=== PATIENT | female | born 1990 | race Hispanic/Latino ===

== ENCOUNTER 2016-11-30 18:51 | Emergency (ER) | payer BC, MEDICAID ==
[2016-11-30 20:31] VITALS: BMI 26.9
[2016-11-30] MEDS ORDERED: Lactated Ringer's 1,000 ML IV STA (20:42)
--- NOTE | 2016-11-30 20:51 | ED PDOC ---
HPI: Abdomen Time Seen by Provider: 11/30/16 20:08 Chief Complaint (Provider): Epigastric pain History Per: Patient History/Exam Limitations: no limitations Onset/Duration Of Symptoms: Hrs (since 5PM) Current Symptoms Are (Timing): Better Additional Complaint(s): Shannon Ndiaye is a 26 y/o female who presents to the ED for complaints of epigastric pain, sudden onset around 5PM. She then developed nausea and vomited once. Patient had just eaten a PB&J just prior to vomiting because she thought it would alleviate the stomach discomfort. Also has had 3 episodes of diarrhea. Denies hematemesis, fever, chills, and urinary symptoms. Patient is 29 weeks and was seen at the [facility] and sent down here for further evaluation. Currently she reports minimal discomfort, has not tried to eat or drink anything since vomiting. OB: Dr. Saba Past Medical History Reviewed: Historical Data, Nursing Documentation, Vital Signs Vital Signs: Last Vital Signs Temp 98.0 F 11/30/16 22:10 Pulse 90 11/30/16 22:10 Resp 18 11/30/16 22:10 BP 129/81 11/30/16 22:10 Pulse Ox 100 11/30/16 22:10 - Medical History PMH: Asthma, Hypothyroidism - Family History Family History: States: Unknown Family Hx - Immunization History Hx Tetanus Toxoid Vaccination: No Hx Influenza Vaccination: Yes Hx Pneumococcal Vaccination: No - Home Medications Home Medications: Ambulatory Orders Medication Instructions Recorded Levothyroxine Sodium [Synthroid] 1 tab PO DAILY 08/22/14 Vit#96/Ferrous Fum/FA 1 tab PO DAILY 08/22/14 [ Tablet] Montelukast [Singulair] 1 tab PO DAILY 10/17/14 Ibuprofen [Motrin Tab] 800 mg PO Q8 #1 tab 10/21/14 Famotidine [Pepcid] 40 mg PO DAILY PRN #14 tab 11/30/16 Ondansetron ODT [Zofran ODT] 1 odt PO Q6 PRN #20 odt 11/30/16 - Allergies Allergies/Adverse Reactions: Allergies Allergy/AdvReac Type Severity Reaction Status Date / Time shellfish derived Allergy Mild rash and Verified 11/30/16 20:08 swelling Review of Systems ROS Statement: Except As Marked, All Systems Reviewed And Found Negative (and as per HPI) Constitutional: Negative for: Fever, Chills Gastrointestinal: Positive for: Nausea, Vomiting (x 1 episode), Abdominal Pain ( epigastric), Diarrhea (x 3 episodes). Negative for: Hematemesis Genitourinary Female: Negative for: Dysuria, Frequency, Incontinence Physical Exam - Reviewed Nursing Documentation Reviewed: Yes Vital Signs Reviewed: Yes - Physical Exam Appears: Positive for: Well, No Acute Distress Head Exam: Positive for: ATRAUMATIC, NORMOCEPHALIC Skin: Positive for: Warm, Dry, Rash (eczematous rash to bilateral antecubital areas and periroral area) Eye Exam: Positive for: EOMI, PERRL ENT: Negative for: Pharyngeal Erythema, Tonsillar Exudate Neck: Positive for: Painless ROM, Supple Cardiovascular/Chest: Positive for: Regular Rate, Rhythm, Chest Non Tender. Negative for: Bradycardia Respiratory: Positive for: Normal Breath Sounds. Negative for: Wheezing, Respiratory Distress Gastrointestinal/Abdominal: Positive for: Other (gravid >20 weeks). Negative for: Tenderness, Mass, Guarding Back: Positive for: Normal Inspection. Negative for: Vertebral Tenderness Extremity: Positive for: Normal ROM. Negative for: Deformity Lymphatic: Negative for: Adenopathy Neurologic/Psych: Positive for: Alert. Negative for: Motor/Sensory Deficits - Laboratory Results Result Diagrams: 11/30/16 21:00 11/30/16 21:00 Medical Decision Making Medical Decision Making: Initial Impression: Vomiting and Epigastric pain Time: 20:41 Initial Plan: --Labs --Lactated Ringers 1000 ml at 1000 mls/hr IV --Labs demonstrate no emergently significant lab abnormalities Time: 21:46 Clinical Impression: Vomiting and diarrhea Upon provider reevaluation patient is medically stable, and requires no further treatment in the ED at this time. Patient will be discharged with Rx for Zofran and Pepcid. Counseling was provided and all questions were answered regarding diagnosis and need for follow up with OBGYN. There is agreement to discharge plan. Return if symptoms persist or worsen. Scribe Attestation: Documented by Emilie Fuentes, acting as a scribe for Norah Dill MD Provider Scribe Attestation: All medical record entries made by the Scribe were at my direction and personally dictated by me. I have reviewed the chart and agree that the record accurately reflects my personal performance of the history, physical exam, medical decision making, and the department course for this patient. I have also personally directed, reviewed, and agree with the discharge instructions and disposition. Disposition - Clinical Impression Clinical Impression: Vomiting and diarrhea - Patient ED Disposition Is Patient to be Admitted: No Doctor Will See Patient In The: Office Counseled Patient/Family Regarding: Studies Performed, Diagnosis, Need For Followup, Rx Given - Disposition Referrals: Jan Saba MD [Staff Provider] - 12/01/16 Disposition: Routine/Home Disposition Time: 21:46 Condition: GOOD Prescriptions: Famotidine [Pepcid] 40 mg PO DAILY PRN #14 tab PRN Reason: reflux Ondansetron ODT [Zofran ODT] 1 odt PO Q6 PRN #20 odt PRN Reason: Nausea/Vomiting Instructions: Acute Nausea and Vomiting (ED)
[2016-11-30 21:07] LABS: BASO # 0.1 K/uL (0.0-0.2); BASO % 0.8 % (0.0-2.0); EOS # 0.3 K/uL (0.0-0.7); EOS % 2.5 % (0.0-4.0); HEMATOCRIT 35.4 % (34.0-47.0); LYMPH % 14.7 % (20.0-40.0); MEAN CELL VOLUME 90.9 fl (81.0-99.0); MEAN CORPUSCULAR HEMOGLOBIN 30.4 pg (27.0-31.0); MEAN CORPUSCULAR HGB CONC 33.4 g/dL (33.0-37.0); MEAN PLATELET VOLUME 10.2 fl (7.2-11.7); MONO # 0.7 K/uL (0.0-0.8); NEUT # 10.3 K/uL (1.8-7.0); RED CELL DISTRIBUTION WIDTH 14.5 % (11.5-14.5); WHITE BLOOD COUNT 13.4 K/uL (4.8-10.8)
[2016-11-30 21:24] LABS: ALB/GLOB RATIO 1.1 (1.0-2.1); ALKALINE PHOSPHATASE 82 U/L (38-126); ALT/SGPT 33 U/L (9-52); AST/SGOT 24 U/L (14-36); BILIRUBIN,TOTAL 0.5 mg/dl (0.2-1.3); BLOOD UREA NITROGEN 6 mg/dl (7-17); CARBON DIOXIDE 22 mmol/L (22-30); CHLORIDE 103 mmol/L (98-107); GFR AFRICAN-AMERICAN > 60; GLUCOSE,RANDOM 80 mg/dL (65-105); LIPASE 74 U/L (23-300); POTASSIUM 3.8 MMOL/L (3.6-5.0); SODIUM 136 mmol/l (132-148); TOTAL PROTEIN 7.4 G/DL (6.3-8.2)
--- NOTE | 2016-11-30 21:24 | OBHP ---
Datetime: 11/30/2016 19:30 IP Adm Impression: , intrauterine ; No Active Labor; Intact Membranes IP Chief Complaint Other: dizziness IP Admit Plan: Discharge home IP Admit Plan Other: sent to ER for medical eval Admit Comment, IP Provider: IUP at 24+w c/o diszziness 4pm. She had gone to her granmother' s house. She ate german food and then peanut butter jelly sandwaich. [place] Dizziness. + N/V one time . She also had mid epigastric/midline CP. Currently she feels OK but still dizzy care: Dr Whitley Saba - abnormal glucola 200+ POBGYNH: C/S x 1 full term PMH: denies NKA PSoH: deneis smoking ETOTH drugs A; IUP at 24w dizziness PLAN: cleared by OB sned to ER for evaluation...case disucssed with Dr Saba and agreeed Pelvic Type - PN: Not Done Extremities - PN: Normal Abdomen - PN: Normal Back - PN: Normal Breast - PN: Not Done Lungs - PN: Normal Heart - PN: Normal Thyroid - PN: Not Done Neurologic - PN: Normal HEENT - PN: Normal General - PN: Normal FHR - Baseline A Provider: 140 Contraction Comments Provider: none Comments, ACOG Physical Exam: ROS: General: + weakness; no fatigue HEENT: no PETERS; no visual dist CV: no palpitations; +CP GI: +N/V no diarhea No epigastric pain; non radiating : no F/U/D MS: No joint pain IP Hx Assessment: The History has been Reviewed and is Current IP Chief Complaint: Other NICHD Variability Prov Fetus A: Moderate 6-25bpm NICHD Accel Fetus A IP Provider: 15X15 FHR Category Provider Fetus A: Category I NICHD Decel Fetus A IP Provider: None Genitourinary Exam: Normal DTRs - PN: Normal
--- NOTE | 2016-11-30 21:39 | OBDCSUM ---
Datetime: 11/30/2016 19:42 Discharged to, Provider: Other Disch Instr Activity: Normal activity Disch Instr Diet: Restricted, specify Discharge Diet restrict Prov: Diabetic diet Discharge Time: 11/30/2016 19:42 Disch Referrals: None Discharge Comment, Provider: [facility] Discharge Diagnosis Prov Other: gastroenteritits; chest pain
[2016-11-30 21:44] VITALS: O2SAT 100
[2016-11-30 22:10] VITALS: RESP 18
[2016-12-01 01:08] VITALS: BP 113/74; PULSE 92; TEMP 98.9
== END 2016-11-30 22:17 | disposition home or self-care (01) ==
LOC: H.EROB2 18:51 → H.ER 18:51
DX: K52.9 Noninfective gastroenteritis and colitis, unspecified (principal); E03.9 Hypothyroidism, unspecified
CPT/HCPCS: 80053; 82948; 83690; 85025; 96360; 99283; J7120

== ENCOUNTER 2016-12-07 16:40 | Emergency (ER) | payer BC, MEDICAID ==
[2016-12-07 17:26] LABS: RBC URINE 1 /hpf (0-3); URINE BACTERIA RARE (<OCC); URINE BILIRUBIN NEGATIVE (NEGATIVE); URINE BLOOD NEGATIVE (NEGATIVE); URINE COLOR STRAW (YELLOW); URINE GLUCOSE (UA) NEG (Normal); URINE KETONE NEGATIVE (NEGATIVE); URINE LEUKOCYTE ESTERASE NEG Leu/uL (Negative); URINE PROTEIN NEGATIVE (NEGATIVE); URINE UROBILINOGEN 0.2-1.0 mg/dL (0.2-1.0); WBC URINE < 1 /hpf (0-5)
--- NOTE | 2016-12-07 17:37 | OBHP ---
Datetime: 12/07/2016 17:15 IP Adm Impression: , intrauterine ; No Active Labor; Intact Membranes IP Chief Complaint Other: feeling her underwear was wet IP Admit Plan: Observation/Evaluation Admit Comment, IP Provider: IUP at 31+w c/o feeling that he underwear was wet this afternoon . No gush of fluid. no CTX pain. no VB. +FM care: Dr Whitley Saba - abnormal glucola 200+ POBGYNH: C/S x 1 full term PMH: denies NKA PSoH: deneis smoking ETOTH drugs ' IUP at 31w no evidenece of ROM PLAN will check sono for HANSEL and UA for possible UTI Pelvic Type - PN: Adequate Extremities - PN: Normal Abdomen - PN: Normal Back - PN: Normal Breast - PN: Not Done Lungs - PN: Normal Heart - PN: Normal Thyroid - PN: Normal Neurologic - PN: Normal HEENT - PN: Normal General - PN: Normal FHR - Baseline A Provider: 140 Membranes, Provider: Intact Contraction Comments Provider: none Comments, ACOG Physical Exam: ROS: General: no weakness; no fatigue HEENT: no PEETRS; no visual dist CV: no palpitations; no no CP GI: no N/V no diarhea No epigastric pain; non radiating : no F/U/D MS: No joint pain Pool Provider: Negative Ferning Provider: Negative IP Hx Assessment: The History has been Reviewed and is Current Vital Signs Provider: Reviewed; Within Normal Limits IP Chief Complaint: Other NICHD Variability Prov Fetus A: Moderate 6-25bpm NICHD Accel Fetus A IP Provider: 15X15 FHR Category Provider Fetus A: Category I Dilatation, Provider: 0 Genitourinary Exam: Normal DTRs - PN: Normal
--- NOTE | 2016-12-07 18:44 | US ---
OB , limited Indication: Evaluate HANSEL Comparison: None. Technique: Real-time ultrasound was performed through the pelvis. Findings: There is a single living fetus in cephalic presentation. Amniotic fluid volume is within normal limits measuring approximately 13.7 cm. Fundal placenta. The placenta is not previa. There are no adnexal masses or cysts evident. Cervix length measures approximately 5.2 cm. The cervix appears closed. Measurements and calculations: Fetus has a composite sonographic age of 31 weeks 6 days. This calculation is based on the biparietal diameter, head circumference, abdominal circumference, and femur length. Estimated heart rate 153 beats per min. Impression: Single living fetus with a composite sonographic age of 31 weeks 6 days. Estimated heart rate 153 beats per min.
[2016-12-07 23:57] VITALS: BP 102/61; PULSE 87; O2SAT 100
== END 2016-12-07 19:23 | disposition home or self-care (01) ==
LOC: H.EROB2 16:40 → H.EROB 17:05 → H.EROB2 19:23
DX: O47.03 False labor before 37 completed weeks of gestation, third trimester (principal); Z3A.31 31 weeks gestation of pregnancy

== ENCOUNTER 2017-01-02 13:12 | Emergency (ER) | payer BC, MEDICAID ==
--- NOTE | 2017-01-02 14:15 | OBHP ---
Datetime: 01/02/2017 14:09 IP Adm Impression: , intrauterine ; No Active Labor; Intact Membranes IP Admit Plan: Discharge home Admit Comment, IP Provider: D/C home on pelvic and bed rest with instrucions and follow up office th is wk Verbalizes understanding and agreed Extremities - PN: Normal Abdomen - PN: Abnormal Back - PN: Not Done Breast - PN: Not Done Lungs - PN: Normal Heart - PN: Normal Thyroid - PN: Not Done Neurologic - PN: Normal HEENT - PN: Normal FHR - Baseline A Provider: 150 Amniotic Fluid Color, Provider: nitrazine neg Membranes, Provider: Intact Contraction Comments Provider: none Comments, ACOG Physical Exam: Abd soft NT gravid, fundus at 33 cm above sp, NT, SVE speculum no flui d in vault no pooling no active bleeding Nitrazine and cough test neg Ext no calf tenderness Gestation - Est Wks by US: 33 wks Pool Provider: Negative Nitrazine Provider: Negative IP Hx Assessment: The History has been Reviewed and is Current EGA AdmitDate IP: 33.2 IP Chief Complaint: Suspected ruptured membranes NICHD Variability Prov Fetus A: Moderate 6-25bpm NICHD Accel Fetus A IP Provider: 10X10 NICHD Decel Fetus A IP Provider: None Dilatation, Provider: closed Effacement, Provider: none Genitourinary Exam: Normal DTRs - PN: Normal
[2017-01-02 19:00] VITALS: BP 117/63; PULSE 91; RESP 16; TEMP 98.7; O2SAT 100
== END 2017-01-02 14:16 | disposition home or self-care (01) ==
LOC: H.EROB2 13:12 → H.EROB 13:18 → H.EROB2 14:16
DX: O47.03 False labor before 37 completed weeks of gestation, third trimester (principal); Z3A.33 33 weeks gestation of pregnancy

== ENCOUNTER 2017-01-13 23:01 | Emergency (ER) | payer BC, MEDICAID ==
[2017-01-13 23:57] VITALS: BMI 29.9
[2017-01-14 00:27] LABS: RBC URINE 2 /hpf (0-3); URINE BACTERIA RARE (<OCC); URINE BILIRUBIN NEGATIVE (NEGATIVE); URINE BLOOD NEGATIVE (NEGATIVE); URINE COLOR STRAW (YELLOW); URINE GLUCOSE (UA) NEG (Normal); URINE KETONE NEGATIVE (NEGATIVE); URINE LEUKOCYTE ESTERASE NEG Leu/uL (Negative); URINE PROTEIN NEGATIVE (NEGATIVE); URINE UROBILINOGEN 0.2-1.0 mg/dL (0.2-1.0); WBC URINE 1 /hpf (0-5)
[2017-01-14 05:16] VITALS: BP 117/59; PULSE 83; RESP 18
--- NOTE | 2017-01-14 08:45 | OBHP ---
Datetime: 01/14/2017 08:41 IP Adm Impression: , intrauterine ; No Active Labor; Intact Membranes IP Admit Plan: Observation/Evaluation; Discharge home Admit Comment, IP Provider: 26-year-old 001 at 35 weeks gestational age presents to be complai bacilio of contractions. Patient denies any vaginal bleeding or leakage of fluids. Patient reports good movement. records reviewed. Past medical history none Past surgical history 1 Medications vitamins No known drug allergies Surgical history full-term 1 Social history no tobacco, no drugs, no alcohol Physical exam: Deferred physical exam findings Assessment: 36-year-old at 34 weeks gestational age. No evidence of labor at this time. Both maternal we ll-being and well-being reassuring at this time. Plan: Patient discharged home with labor precautions. Patient will follow up in office this week. Pelvic Type - PN: Adequate Extremities - PN: Normal Abdomen - PN: Normal Back - PN: Normal Breast - PN: Normal Lungs - PN: Normal Heart - PN: Normal Thyroid - PN: Normal Neurologic - PN: Normal HEENT - PN: Normal General - PN: Normal FHR - Baseline A Provider: 130s-140s Membranes, Provider: Intact Contraction Comments Provider: occasional Comments, ACOG Physical Exam: Urinalysis negative IP Hx Assessment: The History has been Reviewed and is Current EGA AdmitDate IP: 35.0 Vital Signs Provider: Reviewed; Within Normal Limits IP Chief Complaint: Uterine contractions NICHD Variability Prov Fetus A: Moderate 6-25bpm NICHD Accel Fetus A IP Provider: 15X15 FHR Category Provider Fetus A: Category I NICHD Decel Fetus A IP Provider: None Dilatation, Provider: 0 Effacement, Provider: 0 Station, Provider: -4 Genitourinary Exam: Normal DTRs - PN: Normal
== END 2017-01-14 01:05 | disposition home or self-care (01) ==
LOC: H.EROB2 23:01
DX: O47.03 False labor before 37 completed weeks of gestation, third trimester (principal); Z3A.35 35 weeks gestation of pregnancy; Z87.59 Personal history of other complications of pregnancy, childbirth and the puerperium

== ENCOUNTER 2017-01-17 16:35 | Emergency (ER) | payer BC, MEDICAID ==
[2017-01-17] MEDS ORDERED: Lactated Ringer's 1,000 ML IV SCH (17:45)
[2017-01-17 22:43] VITALS: BP 122/62; PULSE 90; O2SAT 100
== END 2017-01-17 18:30 | disposition home or self-care (01) ==
LOC: H.EROB2 16:35
DX: O47.03 False labor before 37 completed weeks of gestation, third trimester (principal); Z3A.36 36 weeks gestation of pregnancy

== ENCOUNTER 2017-01-23 15:00 | Emergency (ER) | payer BC, MEDICAID ==
--- NOTE | 2017-01-23 17:00 | OBHP ---
Datetime: 01/23/2017 16:17 IP Adm Impression: , intrauterine ; No Active Labor; Intact Membranes IP Admit Plan: Observation/Evaluation; Discharge home Admit Comment, IP Provider: 26 yr at 36.2 wks GA presents to [facility] with complaint of lower abdom inal pain, minimal clear vaginal discharge and 1 episode of vomiting on tuesday. Patient reports jesse ating small meals and fluid. Denies vaginal bleeding, LOF or contractions, fevers nor chills. + FM. P atient receives routine care with Dr. Robins and reports fetus is LGA, measuring 2 weeks ahead as of most recent US on 11/23/16, she does not have her 3rd trimester lab report but denies any abnormal lab/test. Last sexual activity was 7 months ago. Her next appt with Dr. Robins 1 . labs: 1st trimester (GBS neg, HIV neg, RPR neg, Rubella Immune, HSV 1 positive, HSV 2 neg , Hep B neg) OBHx: s/p in 2014 (full term, failure to progress) PMHx: hypothyroidism, asthma ( last used Singulair and Symbicort 8 months ago, last asthma exacerb ation 1 yr ago) SurgHx: x 1 SocHx: denies smoking, Etoh and drugs FMHx: mother dx breast cancer at 39yrs old, siblings healthy Medications: Levothyroxine 75 mcg PO QD, PNV Allergies: NKDA, seafood PE: patient laying in bed comfortably, in no acute distress HEENT: normocephalic, atraumatic, EOMI, PERRLA Cardiac: normal S1 S2, no m/r/g Lungs: clear to auscultation b/l, good air entry Abd: normal bowel sounds, nontender Ext: no edema, full ROM, pulses 2+ b/l throughout Bedside US: fetus in vertex position FHR: 150 bpm with moderate variability 6-25bpm, accelerations 15x15, no decels, category 1 tracing A: 26 yr at 36.2 wks GA, stable, not in active labor, FHR reassuring P: -continuous monitoring reassuring -encouraged adequate PO intake -ER precautions reviewed, kick counts reviewed -pt tolerating PO diet and fluids at bedside case discussed and patient seen with Dr. Vik Chery M.D. PGY2 The patient was seen with the resident and I agree with the notes patient examine cervix long clos ed posterior patient advised to follow-up with PMD this week. Patient discharged home labor p recautions Extremities - PN: Normal Abdomen - PN: Normal Back - PN: Normal Lungs - PN: Normal Heart - PN: Normal Neurologic - PN: Normal HEENT - PN: Normal General - PN: Normal Presentation-Admit: Vertex FHR - Baseline A Provider: 150 Membranes, Provider: Intact Gestation - Est Wks by US: 36.2 Pool Provider: Negative EGA AdmitDate IP: 36.2 Vital Signs Provider: Reviewed IP Chief Complaint: Uterine contractions NICHD Variability Prov Fetus A: Moderate 6-25bpm NICHD Accel Fetus A IP Provider: 15X15 FHR Category Provider Fetus A: Category I Dilatation, Provider: 0 Effacement, Provider: 0 Station, Provider: -2 Datetime: 01/17/2017 19:16 Pelvic Type - PN: Adequate Breast - PN: Normal Thyroid - PN: Normal Genitourinary Exam: Normal DTRs - PN: Normal
[2017-01-23 21:02] VITALS: BP 126/65; PULSE 86; RESP 17; O2SAT 100
== END 2017-01-23 16:59 | disposition home or self-care (01) ==
LOC: H.EROB2 15:00 → H.EROB 15:06 → H.EROB2 16:59
DX: O47.03 False labor before 37 completed weeks of gestation, third trimester (principal); Z3A.36 36 weeks gestation of pregnancy; O26.93 Pregnancy related conditions, unspecified, third trimester; R10.2 Pelvic and perineal pain

== ENCOUNTER 2017-01-31 15:50 | Emergency (ER) | payer BC, MEDICAID ==
[2017-01-31 16:49] VITALS: BMI 30.1
[2017-01-31 17:36] LABS: RBC URINE 2 /hpf (0-3); URINE BACTERIA OCC (<OCC); URINE BILIRUBIN NEGATIVE (NEGATIVE); URINE BLOOD NEGATIVE (NEGATIVE); URINE COLOR YELLOW (YELLOW); URINE GLUCOSE (UA) NEG (Normal); URINE KETONE NEGATIVE (NEGATIVE); URINE LEUKOCYTE ESTERASE NEG Leu/uL (Negative); URINE PROTEIN NEGATIVE (NEGATIVE); URINE UROBILINOGEN 0.2-1.0 mg/dL (0.2-1.0); WBC URINE 1 /hpf (0-5)
[2017-01-31 22:13] VITALS: BP 104/48; PULSE 82; RESP 17; TEMP 98.4; O2SAT 100
--- NOTE | 2017-01-31 22:19 | OBHP ---
Datetime: 01/31/2017 17:08 IP Adm Impression: Term, intrauterine IP Admit Plan: Discharge home Admit Comment, IP Provider: 26 yo F, at 37.3 weeks gestation by LMP and u/s, JEAN CARLOS of 02/18/17 and with repeat C/s scheduled for 02/11/17 presented to [facility] due to abdominal discomfort since 630 pm last night. Pt accompanied by her mother, who kept a log of episodes of discomfort; episodes ranged from 9 min utes apart to 40+ minutes apart. Rates episodes 9/10. Denies vaginal bleeding or loss of fluid. Reports movement. Last sexual activity prior to cu rrent . OBhx: 1 prior C/s October 2014 at 38 weeks, due to failure to progress/dilate and in the setting of a nhydramnios. Med hx: asmtha, hypothyroidism Medications: inhaler as needed, usually less than once/week. Synthroid 75mcg daily. PNV daily. Surg hx: 1 C/s 2014 Social hx: denies tobacco, alcohol, drug use Allergies: shellfish, no known drug allergies. care: Dr. Saba Last visit: 01/26 Next visit: 02/02 Scheduled repeat for 02/11. ROS: denies chest pain, trouble breathing, nausea, vomiting, burning with urination. Had one episo de of diarrhea this afternoon. PE: BP: 111/60 FHR: 150 Gen: AAOx3, no acute distress CV: S1,S2 present, RRR Resp: lung sr clear to auscultation bilaterally Abd: +BS, gravid Extremities: no pitting edema Bimanual exam done by Dr. Sotelo: cervix closed, thick/long. Assessment: 26 yo at 37.3 weeks with abdominal pain during . Possible UTI causing discomfort. Plan: UA, observe on monitor, then likely d/c home with labor precautions. Discussed with attending Dr. Sotelo -[email or web address]. Addendum 18:02 -UA results reviewed; negative for signs of UTI -d/c pt home with labor precautions, encouraged to follow up at scheduled visit in 2 days Discussed w/ Dr. Sotelo. -[email or web address] OB attending addendum: I: No evidence of labor Plan: DC home labor precautions. Patient for repeat Follow-up with Dr. Saba is scheduled this week and to do. Pelvic Type - PN: Adequate Extremities - PN: Normal Abdomen - PN: Normal Back - PN: Normal Breast - PN: Not Done Lungs - PN: Normal Heart - PN: Normal Thyroid - PN: Not Done Neurologic - PN: Normal HEENT - PN: Normal General - PN: Normal FHR - Baseline A Provider: 150 Gestation - Est Wks by US: 37.3 EGA AdmitDate IP: 37.3 IP Chief Complaint: Maternal discomfort NICHD Variability Prov Fetus A: Moderate 6-25bpm NICHD Accel Fetus A IP Provider: 15X15 FHR Category Provider Fetus A: Category I Dilatation, Provider: 0 Effacement, Provider: 0/post Station, Provider: -3 Genitourinary Exam: Normal DTRs - PN: Not Done (Annotations: Data stored by CPN on behalf of user)
== END 2017-01-31 18:10 | disposition home or self-care (01) ==
LOC: H.EROB2 15:50
DX: O26.93 Pregnancy related conditions, unspecified, third trimester (principal); R10.2 Pelvic and perineal pain; Z3A.37 37 weeks gestation of pregnancy; O47.1 False labor at or after 37 completed weeks of gestation; Z87.59 Personal history of other complications of pregnancy, childbirth and the puerperium

== ENCOUNTER 2017-02-08 13:04 | Inpatient (IN) | payer BC, MEDICAID ==
[2017-02-08 13:32] VITALS: BMI 30.5
[2017-02-08] MEDS ORDERED: Lactated Ringer's 1,000 ML IV SCH ×2 (13:45→19:45)
[2017-02-08] MEDS ORDERED: cefOXitin 2 GM in Sodium Chloride 0.9% 100 ML IVPB ONE (14:05)
[2017-02-08 14:25] LABS: BASO # 0.1 K/uL (0.0-0.2); BASO % 0.9 % (0.0-2.0); EOS # 0.5 K/uL (0.0-0.7); EOS % 4.6 % (0.0-4.0); HEMATOCRIT 37.5 % (34.0-47.0); LYMPH # 1.9 K/uL (1.0-4.3); LYMPH % 18.5 % (20.0-40.0); MEAN CELL VOLUME 87.9 fl (81.0-99.0); MEAN CORPUSCULAR HEMOGLOBIN 30.2 pg (27.0-31.0); MEAN CORPUSCULAR HGB CONC 34.3 g/dL (33.0-37.0); MEAN PLATELET VOLUME 10.8 fl (7.2-11.7); MONO # 0.6 K/uL (0.0-0.8); MONO % 6.2 % (0.0-10.0); NEUT # 7.3 K/uL (1.8-7.0); NEUT % 69.8 % (50.0-75.0); NRBC % 0.1 % (0.0-0.0); RED CELL DISTRIBUTION WIDTH 14.3 % (11.5-14.5); WHITE BLOOD COUNT 10.4 K/uL (4.8-10.8)
[2017-02-08] MEDS: Lactated Ringer's 1,000 ML IV SCH ×3 (14:30→20:00)
[2017-02-08 14:43] VITALS: TEMP 98
[2017-02-08] MEDS ORDERED: Oxytocin 30 units/LR 500ML 30 U/500 ML BAG IV ONE (15:03)
[2017-02-08] MEDS ORDERED: Morphine 5 mg/10 ml preservative-free Inj(Duramorph) ONE (15:29)
[2017-02-08] MEDS ORDERED: ePHEDrine 50 mg/ml Inj ONE (15:59)
[2017-02-08] MEDS ORDERED: DiphenhydrAMINE 50 mg/ml Inj ONE (16:06)
[2017-02-08] MEDS ORDERED: EPINEPHrine 1 mg/ml (1:1000) Inj ONE (16:11)
[2017-02-08] MEDS ORDERED: DiphenhydrAMINE 50 mg/ml Inj IVP PRN ×2 (16:43→19:51)
[2017-02-08] MEDS ORDERED: Morphine 1 mg/ml preservative-free Inj(Duramorph) IT ONE (16:43)
[2017-02-08] MEDS ORDERED: Naloxone 0.4 mg/ml Inj (Adult) IVP PRN (16:43)
--- NOTE | 2017-02-08 16:56 | OBADHP ---
Datetime: 02/08/2017 14:23 Admit Comment, IP Provider: 26 yo F, at 38+ weeks gestation by LMP and u/s sent in by her pr enatal provider Dr. Saba for scheduled . Pt reports good movement, denies vaginal bleeding, loss of fluid, or contractions. OBhx: 1 prior C/s October 2014 at 38 weeks, due to failure to progress/dilate and in the setting of a nhydramnios. Med hx: asmtha, hypothyroidism Medications: inhaler as needed, usually less than once/week. Synthroid 75mcg daily. PNV daily. Surg hx: 1 C/s 2014 Social hx: denies tobacco, alcohol, drug use Allergies: shellfish, no known drug allergies. care: Dr. Saba Last visit: today ROS: denies chest pain, trouble breathing, nausea, vomiting, burning with urination. PE: BP: 126/56 FHR: 150 Gen: AAOx3, no acute distress CV: S1,S2 present, RRR Resp: lung sr clear to auscultation bilaterally Abd: gravid, nontender Extremities: no pitting edema Assessment: 26 yo at 38+ weeks, here for repeat . Plan: Admit to unit, initiate pre-op protocol -[email or web address] Pelvic Type - PN: Adequate Extremities - PN: Normal Abdomen - PN: Normal Back - PN: Normal Breast - PN: Not Done Lungs - PN: Normal Heart - PN: Normal Thyroid - PN: Not Done Neurologic - PN: Normal HEENT - PN: Normal General - PN: Normal FHR - Baseline A Provider: 150 Gestation - Est Wks by US: 38.4 Vital Signs Provider: Reviewed IP Chief Complaint: Scheduled Section NICHD Variability Prov Fetus A: Moderate 6-25bpm NICHD Accel Fetus A IP Provider: 15X15 FHR Category Provider Fetus A: Category I NICHD Decel Fetus A IP Provider: None Genitourinary Exam: Not Done DTRs - PN: Not Done EGA AdmitDate IP: 38.4 IP Adm Impression: Term, intrauterine IP Admit Plan: Admit to unit; Initiate Section protocol Datetime: 01/31/2017 17:08 Dilatation, Provider: 0 Effacement, Provider: 0/post Station, Provider: -3 Datetime: 01/23/2017 16:17 Presentation-Admit: Vertex Membranes, Provider: Intact Pool Provider: Negative Datetime: 01/14/2017 08:41 Contraction Comments Provider: occasional Comments, ACOG Physical Exam: Urinalysis negative IP Hx Assessment: The History has been Reviewed and is Current Datetime: 01/02/2017 14:09 Amniotic Fluid Color, Provider: nitrazine neg Nitrazine Provider: Negative Datetime: 12/07/2016 17:15 IP Chief Complaint Other: feeling her underwear was wet Ferning Provider: Negative Datetime: 11/30/2016 19:30 IP Admit Plan Other: sent to ER for medical eval
--- NOTE | 2017-02-08 17:02 | OBDS ---
DELIVERY PERSONNEL Delivery Doctor: Debby Saba R MD Scrub Nurse: HERBIE Pathak/Dipti Risk Tech: Amanda Zapata RN/Gavin Anesthesiologist: Dr Wick Resident: Dr Hyde MATERNAL INFORMATION Delivery Anesthesia: Spinal Medications in Delivery: Pitocin 30Units in LR 500ml Placenta Cultured: No Maternal Complications: None Provider Comments: delivery of live baby boy 9/9 clear fluid cord with 3vessels placenta anter ior tubes and ovaries wnl bilateral tubal ligation LABOR SUMMARY EDC: 02/18/2017 00:00 LABOR INFORMATION Group B Beta Strep: Negative STAGES OF LABOR Stage 3 hrs: 0 Stage 3 min: 1 VAGINAL DELIVERY Episiotomy: None Laceration Extension: N/A Laceration Type: None CSECTION DELIVERY Primary Indication: Repeat Elective Secondary Indication: Repeat Elective with BTL CSection Urgency: N/A CSection Incidence: Repeat Labor: N/A Elective: Elective CSection Incision: N/A BABY A INFORMATION Infant Delivery Date/Time: 02/08/2017 16:05 Method of Delivery: Born in Route : No : N/A Forceps: N/A Vacuum Extraction: N/A Shoulder Dystocia : No SHOULDER DYSTOCIA BABY A Infant Delivery Date/Time: 02/08/2017 16:05 PRESENTATION/POSITION BABY A Presentation: Cephalic Breech Presentation: N/A PLACENTA INFORMATION BABY A Placenta Delivery Time : 02/08/2017 16:06 Placenta Method of Delivery: Expressed Placenta Status: Delivered SCORES BABY A Heart Rate 1 min: >100 bpm Resp Effort 1 min: Good Cry Reflex Irritability 1 min: Cough or Sneeze or Pulls Away Muscle Tone 1 min: Active Motion Color 1 min: Body [place], Extremities Blue Resuscitation Effort 1 min: Tactile Stimulation SCORE 1 MIN: 9 Heart Rate 5 min: >100 bpm Resp Effort 5 min: Good Cry Reflex Irritability 5 min: Cough or Sneeze or Pulls Away Muscle Tone 5 min: Active Motion Color 5 min: Body [place], Extremities Blue Resuscitation Effort 5 min: N/A SCORE 5 MIN: 9 INFORMATION BABY A Gestational Age at Delivery: 38.4 Gestational Status: Term Outcome : Liveborn Condition : Stable Infant Sex: Male IDENTIFICATION/MEDS BABY A ID Band Number: [id number] ID Band Location: Left Leg; Left Arm Vitamin K Given : Not Given Erythromycin Given: Not Given WEIGHT/LENGTH BABY A Birthweight (gms): 3675 Infant Weight (lb): 8 Weight (oz): 2 CORD INFORMATION BABY A No. Cord Vessels: 3 Nuchal Cord : N/A Nuchal Cord Other: n/a True Knot: n/a Infant Cord pH Baby Arterial: n/a Infant Cord pH Baby Venous: n/a Cord Blood Taken: Yes Banking/Donate Info: n/a Infant Suction: Mouth; Nose
[2017-02-08] MEDS ORDERED: Oxycodone/Acetaminophen 5/325 mg Tab PO PRN ×2 (17:07→19:51)
--- NOTE | 2017-02-09 01:02 | OP ---
PROCEDURE DATE: 02/08/2017 PREOPERATIVE DIAGNOSES: Term , previous section, in labor, multiparity. POSTOPERATIVE DIAGNOSES: Term , previous section, in labor, multiparity. PROCEDURE: Repeat low transverse section and bilateral tubal ligation. SURGEON: Jan Saba MD CHANNELER RUNNER: Dr. Kessler. TYPE OF ANESTHESIA: Spinal anesthesia. ANESTHESIA ADMINISTERED BY: Dr. Wick. DESCRIPTION OF PROCEDURE: With the patient in the supine position, the patient was prepped and draped in the usual sterile manner. Dr. Kessler assisted in preparation for the surgery. After this was done, a Pfannenstiel incision was made and taken down to the fascia in layers, fascia incised and extended bilaterally. Dr. Kessler doing his half and I am doing my half. After this was done, the muscles were from the fascia by sharp dissection after which the peritoneum was grasped, incised and extended vertically. Upon entering the abdominopelvic cavity, paracolic gutters were packed with wet laps, pushing the bowel away from the operative field. Bladder flap was established and then low transverse incision was made in the uterus going upward and extended bilaterally. The baby was removed without any complication with vacuum assistance and given to the in flight refueling manager who resuscitated. After this was done, the placenta was removed intact. The uterus was then exteriorized, cleaned and closed in 2 layers maintaining hemostasis. The tubes were ligated in a modified Slim fashion bilaterally maintaining hemostasis. After this was done, pelvic cavity was irrigated until clean. The wet laps were removed from the paracolic gutters. The uterus was then repositioned. The peritoneum was grasped and closed with 2-0 Vicryl. Also, the muscles were approximated with 2-0 Vicryl. Following this, the fascia was closed starting at each end and finished in the midline. Dr. Kessler doing his half and I am doing my half. After this was done, a subcutaneous layer was closed with 2-0 plain chromic. After that was done, the incision was closed in subcuticular fashion maintaining hemostasis. Dr. Kessler was there from the beginning of the procedure until the last stitch was put into the abdomen. The patient tolerated the procedure well and was in satisfactory condition on the way to the recovery room. Jan MD [facility] # [id number]
[2017-02-09] MEDS: Lactated Ringer's 1,000 ML IV SCH (03:32)
[2017-02-09 06:14] LABS: HEMATOCRIT 30.7 % (34.0-47.0); MEAN CELL VOLUME 89.1 fl (81.0-99.0); MEAN CORPUSCULAR HGB CONC 33.7 g/dL (33.0-37.0); RED CELL DISTRIBUTION WIDTH 14.1 % (11.5-14.5); WHITE BLOOD COUNT 11.5 K/uL (4.8-10.8)
--- NOTE | 2017-02-09 08:36 | OBPPN ---
Datetime: 02/09/2017 08:32 PP Pain Prov: Within normal limits PP Nausea Prov: Denies PP Flatus Prov: Yes PP BM Prov: No PP Breasts Prov: Normal PP Heart Prov: Normal PP Lungs Prov: Normal PP Abdomen/Uterus Prov: Normal PP Lochia Prov: Normal PP Vulva/Perineum Prov: Normal PP CVA Tenderness Prov: Normal PP Extremities Prov: Normal PP C/S Incision Prov: Normal PP Progress Prov: Normal PP Impression Prov: Normal progression PP Plan Prov: Continue present management PP Progress Note Prov: stable pod1,dc pebbles gutierres with assistance,regular diet dc dressing in pm,may shower IP PP Procedures: None Vital Signs Provider PP: Reviewed; Within Normal Limits
[2017-02-09] MEDS ORDERED: Vitamin A/D oint 60G TP ONE (15:58)
[2017-02-09] MEDS ORDERED: Simethicone 80 mg Chewtab PO PRN (21:27)
[2017-02-10] MEDS ORDERED: Levothyroxine 75 MCG TAB PO SCH (06:30)
--- NOTE | 2017-02-10 08:03 | OBPPN ---
Datetime: 02/10/2017 07:58 PP Pain Prov: Within normal limits PP Nausea Prov: Denies PP Flatus Prov: Yes PP BM Prov: No PP Breasts Prov: Normal PP Heart Prov: Normal PP Lungs Prov: Normal PP Abdomen/Uterus Prov: Normal PP Lochia Prov: Normal PP Vulva/Perineum Prov: Normal PP CVA Tenderness Prov: Normal PP Extremities Prov: Normal PP C/S Incision Prov: Normal PP Progress Prov: Normal PP Impression Prov: Normal progression PP Plan Prov: Continue present management PP Progress Note Prov: stable pod2 continue present care IP PP Procedures: None Vital Signs Provider PP: Reviewed; Within Normal Limits
[2017-02-10] MEDS ORDERED: Pneumococcal 23-Valent Vaccine IM ONE (09:00)
[2017-02-10] MEDS ORDERED: Influenza Vaccine 18yr & older 0.5 ML/45 MCG SYR IM ONE (09:00)
--- NOTE | 2017-02-10 18:49 | OBDCSUM ---
Datetime: 02/10/2017 18:45 Discharged to, Provider: Home Follow up at, Provider: Disch Instr Activity: Bedrest; May be up to bathroom; May be up for meals; May Shower Disch Instr Diet: Regular Discharge Instructions, Provider: Specific instructions as noted Discharge Diagnosis, Provider: Term Delivered Discharge Time: 02/10/2017 18:45 Follow up in weeks, Provider: 1week in office Disch Referrals: None Disch Activity Restrictions: No exercising; No lifting; No driving; Minimize walking; Minimize stair -climbing; No sexual activity; Nothing in vagina - [place], tampons, douche Discharge Comment, Provider: aracelis home today rto 1week call office if any problems Contraception after Delivery: Tubal Ligation
[2017-02-11 03:07] VITALS: BP 133/80; PULSE 78; RESP 20; O2SAT 100
== END 2017-02-10 20:40 | disposition home or self-care (01) | DRG 766 ==
LOC: H.EROB2 13:04 → H.L&D 13:36 → H.OB/GYN 19:30
PROVIDERS: ADMIT Specialist; ATTEND Specialist
PROC: 10D00Z1 Extraction of Products of Conception, Low, Open Approach (ICD-10-PCS; principal; 2017-02-08)
PROC: 0UB70ZZ Excision of Bilateral Fallopian Tubes, Open Approach (ICD-10-PCS; 2017-02-08)
PROC: 4A0HXCZ Measurement of Products of Conception, Cardiac Rate, External Approach (ICD-10-PCS; 2017-02-08)
DX: O34.211 Maternal care for low transverse scar from previous cesarean delivery (principal); E03.9 Hypothyroidism, unspecified; Z37.0 Single live birth; O99.284 Endocrine, nutritional and metabolic diseases complicating childbirth; N85.8 Other specified noninflammatory disorders of uterus; Z3A.38 38 weeks gestation of pregnancy; Z30.2 Encounter for sterilization